=== PATIENT | male | born 1980 | race Caucasian/White ===

== ENCOUNTER 2022-03-27 04:50 | Emergency (ER) | payer OTHER ==
[~2022-03-27] VITALS: Ht 177.8 cm; Wt 113.0 kg
--- NOTE | 2022-03-27 05:24 | PHYS DOC ---
Past Medical History Past Surgical History: No Surgical History Smoking Status: Never Smoker Alcohol Use: Occasionally General Adult EDM: Chief Complaint: FLANK PAIN HPI: HPI: 41-year-old male, past medical history diabetes, on glipizide, spinal pa, presents with right flank pain with associated nausea and nonbloody nonbilious vomiting and subjective fever and chills tonight that woke him up from sleep times few hours. No alcohol or illicit drug use. Patient was in his usual state of health prior. No cough/chest pain or SOB. Review of Systems: Review of Systems: Constitutional: Denies fever or chills. [] Eyes: Denies change in visual acuity. [] HENT: Denies nasal congestion or sore throat. [] Respiratory: Denies cough or shortness of breath. [] Cardiovascular: Denies chest pain or edema. [] GI: + abdominal pain, nausea, vomiting, no bloody stools or diarrhea. [] : Denies dysuria. [] Musculoskeletal: Denies back pain or joint pain. [] Integument: Denies rash. [] Neurologic: Denies headache, focal weakness or sensory changes. [] Endocrine: Denies polyuria or polydipsia. [] Lymphatic: Denies swollen glands. [] Psychiatric: Denies depression or anxiety. [] Heart Score: C/O Chest Pain: No Risk Factors: Risk Factors: DM, Current or recent (<one month) smoker, HTN, HLP, family history of CAD, obesity. Risk Scores: Score 0 - 3: 2.5% MACE over next 6 weeks - Discharge Home Score 4 - 6: 20.3% MACE over next 6 weeks - Admit for Clinical Observation Score 7 - 10: 72.7% MACE over next 6 weeks - Early Invasive Strategies Current Medications: Current Medications Medications (Trade) Dose Ordered Sig/[place] Start Time Stop Time Status Last Admin Dose Admin Morphine Sulfate (Morphine Sulfate) 4 mg 1X ONCE 03/27/22 05:30 03/27/22 05:31 UNV Ondansetron HCl (Zofran) 4 mg 1X ONCE 03/27/22 05:30 03/27/22 05:31 UNV Sodium Chloride 1,000 ml @ 125 mls/hr 1X ONCE 03/27/22 05:30 03/27/22 13:29 UNV Allergies: Allergies: Allergies Coded Allergies Type Severity Reaction Last Updated Verified No Known Drug Allergies 03/27/22 No Physical Exam: PE: Constitutional: Well developed, well nourished, no acute distress, non-toxic appearance. [] HENT: Normocephalic, atraumatic, bilateral external ears normal, oropharynx moist, no oral exudates, nose normal. [] Eyes: PERRLA, EOMI, conjunctiva normal, no discharge. [] Neck: Normal range of motion, no tenderness, supple, no stridor. [] Cardiovascular:Heart rate regular rhythm, no murmur [] Lungs & Thorax: Bilateral breath sounds clear to auscultation [] Abdomen: Bowel sounds normal, soft, +R flank pain, no rebound, no masses, no pulsatile masses. [] Skin: Warm, dry, no erythema, no rash. [] Back: No tenderness, no CVA tenderness. [] Extremities: No tenderness, no cyanosis, no clubbing, ROM intact, no edema. [] Neurologic: Alert and oriented X 3, normal motor function, normal sensory function, no focal deficits noted. [] Psychologic: Affect normal, judgement normal, mood normal. [] Current Patient Data: Vital Signs: Vital Signs Date Time Temp Pulse Resp B/P (MAP) Pulse Ox O2 Delivery O2 Flow Rate FiO2 03/27/22 05:15 98.9 120 18 146/74 (98) 96 Room Air 98.9 EKG: EKG: [] Radiology/Procedures: Radiology/Procedures: [] Course & Med Decision Making: Course & Med Decision Making Pertinent Labs and Imaging studies reviewed. (See chart for details) Additional Social History: PMD from non-affiliated facility. Patient Lives at home. Family History: Non-pertinent to today's complaint. Nursing Notes Reviewed Previous Medical Records requested via [facility] Web: Reviewed by me. EMERGENT LABS AND DIAGNOSTIC STUDIES: Results were reviewed and interpreted by me as below CBC: Shows no evidence of leukocytosis or anemia. Platelet count is normal Chemistry: Shows no electrolyte abnormalities other than mild eelvated lipase and hyperglycemia Otherwise within normal limits, unremarkable or as noted above. 12-lead EKG Interpretation by Ronda Santana MD: Normal Sinus Rhythm at [ ] beats per minute Normal axis Normal intervals No ectopy No PVC No other acute ST or T wave abnormalities Overall impression is normal EKG Pending CT a/p noncontrast: EMERGENCY DEPARTMENT COURSE/ MEDICAL DECISION MAKING: The patient was placed on a secured entrance monitor, continuous pulse oximetry and was given supplemental oxygen. I examined the patient, evaluated and addressed patient's chief complaint. r/o renal stone, appendicitis, covid, uti, pyelonephritis, metabolic derangements The patient was treated with morphine, zofran, IV fluids. Pending ct a/p and urine. Signed out to Dr. Garrett DIAGNOSTIC IMPRESSION: 1. R flank pain DISPOSITION: Disposition: still a patient Condition: stable [place] Disclaimer: [place] Disclaimer: This electronic medical record was generated, in whole or in part, using a voice recognition dictation system. Departure Departure Impression: Primary Impression: Right flank pain Additional Impression: Nausea & vomiting Disposition: 30 STILL A PATIENT Condition: STABLE ROBBIN SANTANA MD March 27, 2022 05:24
[2022-03-27 05:32] LABS: BASO % 0 % (0-3); EOS # 0.1 x10^3/uL (0.0-0.7); EOS % 1 % (0-3); HEMATOCRIT 47.2 % (39.0-53.0); HEMOGLOBIN 16.4 g/dL (13.0-17.5); LYMPH # 0.9 x10^3/uL (1.0-4.8); LYMPH % 12 % (24-48); MEAN CORPUSCULAR HEMOGLOBIN 30 pg (25-35); MEAN CORPUSCULAR HGB CONC 35 g/dL (31-37); MEAN CORPUSCULAR VOLUME 87 fL (79-100); MONO # 0.8 x10^3/uL (0.0-1.1); MONO % 10 % (0-9); NEUT # 6.1 x10^3/uL (1.8-7.7); NEUT % 77 % (31-73); PLATELET COUNT 158 x10^3/uL (140-400); RED CELL DISTRIBUTION WIDTH 12.9 % (11.5-14.5); WHITE BLOOD COUNT 7.9 x10^3/uL (4.0-11.0)
[2022-03-27 05:37] VITALS: BP 151/73
[2022-03-27 05:44] LABS: CALCIUM 8.6 mg/dL (8.5-10.1); CREATININE 1.1 mg/dL (0.7-1.3); GFR 73.1; POTASSIUM 4.3 mmol/L (3.5-5.1)
[2022-03-27 05:54] LABS: ALBUMIN 3.9 g/dL (3.4-5.0); ALBUMIN/GLOBULIN RATIO 1.3 (1.0-1.7); TOTAL BILIRUBIN 0.6 mg/dL (0.2-1.0)
[2022-03-27] MEDS ORDERED: ONDANSETRON PF 4 MG/2 ML VIAL. IVP ONE ×2 (06:00→08:15)
[2022-03-27] MEDS ORDERED: IV NORMAL SALINE 1000ML BAG 1,000 ML IV ONE ×2 (06:00→10:30)
[2022-03-27] MEDS ORDERED: MORPHINE SULFATE 4 MG/ML INJ. IVP ONE (06:00)
--- NOTE | 2022-03-27 06:03 | RAD ---
Abdominal and Pelvis CT, Without Contrast: History: Reason: abd pain, flank pain, vomiting / Spl. Instructions: / History: Comparison: None. Procedure: Axial images are obtained of the abdomen and pelvis, without IV or oral contrast. Oral Contrast: No Findings: Evaluation of solid organs is limited without contrast. The gallbladder appears normal. The appendix is normal. Liver: Normal. Spleen: Normal. Pancreas: Normal. Adrenal Glands: Normal. Kidneys: Normal. There is no free air or free fluid. There is no lymphadenopathy. The urinary bladder appears normal. There is no pericolonic inflammation identified. Impression: No acute findings. End impression PQRS Compliance Statement: One or more of the following individualized dose reduction techniques were utilized for this examinat ion: 1. Automated exposure control 2. Adjustment of the mA and/or kV according to patient size 3. Use of iterative reconstruction technique Electronically signed by: Inder Bruce III, MD (03/27/2022 6:00 AM) [facility]
[2022-03-27 08:00] LABS: BACTERIA,URINE 0 /HPF (0-FEW); RBC,URINE 0 /HPF (0-2); WBC,URINE OCC /HPF (0-4)
[2022-03-27] MEDS ORDERED: MORPHINE SULFATE 4 MG/ML INJ. IV PRN (08:11)
--- NOTE | 2022-03-27 08:51 | RAD ---
INDICATION: Reason: Groin pain / Spl. Instructions: / History: COMPARISON: CT from same day TECHNIQUE: Grayscale, color and spectral doppler ultrasound images obtained of the scrotum. FINDINGS: Right Testicle: 43 x 30 x 24 mm. Vascular flow is identified. Left Testicle: 45 x 26 x 23 mm. Vascular flow is identified. 8 mm left epididymal cyst. Small left hydrocele. IMPRESSION: * Vascular flow is identified to the bilateral testicles. Electronically signed by: Nick Steele MD (03/27/2022 8:48 AM) [id number]
[2022-03-27] MEDS ORDERED: HYDROmorphone 2 MG/ML INJ. IM ONE (09:15)
[2022-03-27] MEDS ORDERED: PROCHLORPERAZINE 10 MG/2 ML VIAL. IV ONE (09:15)
[2022-03-27] MEDS ORDERED: diphenhydrAMINE 50 MG/ML VIAL IVP ONE (09:15)
[2022-03-27] MEDS ORDERED: NORMAL SALINE IV ONE (09:30)
[2022-03-27] MEDS ORDERED: DIPHENHYDRAMINE IV ONE (09:30)
[2022-03-27] MEDS ORDERED: HYDROcodone/APAP 5/325MG 1 TAB TABLET PO ONE (12:15)
[2022-03-27] MEDS ORDERED: HYDR-2761 PO (12:49)
--- NOTE | 2022-03-27 15:04 | EKG ---
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
== END 2022-03-27 13:32 | disposition still patient (30) ==
LOC: ER 04:50
DX: R10.9 Unspecified abdominal pain (principal); R11.2 Nausea with vomiting, unspecified; Z20.822 Contact with and (suspected) exposure to COVID-19; R50.9 Fever, unspecified; E11.9 Type 2 diabetes mellitus without complications
CPT/HCPCS: 36415; 74176; 76870; 80053; 81001; 82962; 83690; 85025; 87426; 93005; 96361; 96365; 96372; 96375; 96376; 99284; J0780; J1170; J1200; J2270; J2405; J7030